=== PATIENT | female | born 1935 | race American Indian/Alaskan Native ===

== ENCOUNTER 2018-09-12 04:51 | Emergency (ER) | payer MEDICARE ==
--- NOTE | 2018-09-12 06:59 | Cat Scan Report ---
PROCEDURE: CT HEAD/BRAIN WO CON TECHNIQUE: Computerized tomography of the head was performed without contrast material. CT DOSE LENGTH PRODUCT: mGycm HISTORY: fall COMPARISONS: None . FINDINGS: Skull and scalp: There is mild right-sided supraorbital soft tissue swelling without fracture. . Paranasal sinuses: Normal . Ventricles and subarachnoid spaces: Normal . Cerebrum: No evidence of hemorrhage, acute infarction or mass . There is a remote infarct in the lef t parietal lobe. There is slightly diminished attenuation of the periventricular white matter compati ble with chronic ischemic white matter disease changes. Cerebellum and brainstem: No evidence of hemorrhage, acute infarction or mass . Vasculature: Normal . Other: None . ASPECTS: 10 IMPRESSION: Right-sided supraorbital scalp swelling without skull fracture. Age-related volume loss with chronic ischemic white matter disease changes. No acute stroke or hemorr rosa maria. 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 This document is electronically signed by Smooth Hurtado MD., Sep 12 2018 06:56:46 AM ET
[2018-09-12] MEDS ORDERED: NORCO 5/325 PO ONE (07:15)
--- NOTE | 2018-09-12 07:18 | Emergency Department Report ---
HPI - General Chief Complaint: Fall Time Seen by Provider: 09/12/18 07:06 - HPI HPI: Room 23 The patient is an 83-year-old female presented with a chief complaint of head pain after fall. The patient states she was asleep when she fell out of bed and awakening on the floor. She complains of a headache and pain in bilateral thumbs and neck. Location: [See above] Duration: Just prior to arrival Quality: Pain Severity: Moderate Modifying factors: [see above] Context: [see above] Mode of transportation: [not driving] ED Past Medical Hx - Past Medical History Previous Medical History?: Yes Hx Hypertension: Yes Hx Congestive Heart Failure: Yes Hx Diabetes: Yes Hx Renal Disease: Yes - Surgical History Past Surgical History?: Yes Hx Breast Surgery: Yes Additional Surgical History: Right breast surgery, Left arm port - Family History Family history: no significant - Social History Smoking Status: Never Smoker Substance Use Type: None - Medications Home Medications: Home Medications Medication Instructions Recorded Confirmed Last Taken Type Anastrozole (Nf) [Arimidex (Nf)] 1 mg PO DAILY 02/03/16 02/03/16 02/03/16 History Calcitriol [Rocaltrol] 1 mcg PO QDAY 02/03/16 02/03/16 02/03/16 History Carvedilol [Coreg] 25 mg PO BID 02/03/16 02/03/16 02/03/16 History Ergocalciferol(Vitamin D2)(Nf) 400 unit PO DAILY 02/03/16 02/03/16 02/03/16 History [Vitamin D (Nf)] Ferrous Sulfate [Feosol 325 MG tab] 325 mg PO BID 02/03/16 02/03/16 02/03/16 History Metoprolol Xl [Metoprolol 50 mg PO QDAY 02/03/16 02/03/16 02/03/16 History SUCCINATE ER TAB] Vit B Comp C/Folic Acid/Vit D3 1 each PO QDAY 02/03/16 02/03/16 02/03/16 History [Dialyvite 800 Plus D Wafer] amLODIPine [Norvasc] 5 mg PO DAILY 02/03/16 02/03/16 02/03/16 History glipiZIDE [glipiZIDE ER] 5 mg PO QAM 02/03/16 02/03/16 02/03/16 History hydrALAZINE [Apresoline TAB] 25 mg PO BID 02/03/16 02/03/16 02/03/16 History Colchicine [Colcrys] 0.6 mg PO QDAY #10 tablet 02/10/16 Unknown Rx Furosemide [Lasix TAB] 80 mg PO 4XW #20 tablet 02/10/16 Unknown Rx Insulin NPH/Regular [NovoLIN 70/30] 10 unit SUB-Q BIDDIAB units 02/10/16 Unknown Rx Aspirin [Aspirin BABY CHEW TAB] 81 mg PO QDAY 10/06/16 10/06/16 Unknown History Carvedilol [Coreg] 25 mg PO BID 10/06/16 10/06/16 Unknown History Furosemide [Lasix TAB] 80 mg PO 4XW 10/06/16 10/06/16 Unknown History Insulin Lispro Prot/Lispro 25 unit SQ BID 10/06/16 10/06/16 Unknown History [HumaLOG Mix 75/25 Vial] Losartan [Cozaar] 100 mg PO QDAY 10/06/16 10/06/16 Unknown History Mv,Calcium,Min/Iron/Folic/Vitk 1 each PO DAILY 10/06/16 10/06/16 Unknown History [Multi For Her Tablet] amLODIPine [Norvasc] 10 mg PO DAILY 10/06/16 10/06/16 Unknown History HYDROcodone/APAP 5-325 [Bethesda 1 - 2 each PO Q6HR PRN #10 tablet 09/12/18 Unknown Rx 5/325] Ibuprofen [Motrin 800 MG tab] 800 mg PO Q8HR PRN #20 tablet 09/12/18 Unknown Rx ED Review of Systems ROS: Stated complaint: HEAD LAC Other details as noted in HPI Constitutional: no symptoms reported Eyes: denies: eye pain ENT: denies: throat pain Respiratory: no symptoms reported Cardiovascular: denies: chest pain Endocrine: no symptoms reported Gastrointestinal: denies: abdominal pain Musculoskeletal: myalgia Neurological: headache Physical Exam - Physical Exam Vital Signs: Vital Signs 09/12/18 09/12/18 09/12/18 05:56 06:14 06:16 Temperature 98.0 F Pulse Rate 75 77 Respiratory 18 22 Rate O2 Sat by Pulse 98 99 Oximetry Physical Exam: GENERAL: The patient is well-developed well-nourished female lying on stretcher appearing to be in moderate discomfort. [] HEENT: Normocephalic. Atraumatic. Extraocular motions are intact. Patient has moist mucous membranes. NECK: Supple. No axial step offs but there is tenderness to palpation at C7 CHEST/LUNGS: Clear to auscultation. There is no respiratory distress noted. HEART/CARDIOVASCULAR: Regular. There is no tachycardia. There is no gallop rub or murmur. ABDOMEN: Abdomen is soft, nontender. Patient has normal bowel sounds. There is no abdominal distention. SKIN: There is an approximately 4 mm linear laceration just lateral to the right orbit hemostatic with scab formation. There is no diaphoresis. NEURO: The patient is awake, alert, and oriented. The patient is cooperative. The patient has no focal neurologic deficits. The patient has normal speech MUSCULOSKELETAL: There is no evidence of acute injury. ED Course Vital Signs 09/12/18 09/12/18 09/12/18 05:56 06:14 06:16 Temperature 98.0 F Pulse Rate 75 77 Respiratory 18 22 Rate O2 Sat by Pulse 98 99 Oximetry ED Medical Decision Making - Lab Data Result diagrams: 09/12/18 08:46 09/12/18 08:46 - Radiology Data Radiology results: report reviewed (CT head, CT facial bones, CT cervical spine, bilateral wrist x-ray), image reviewed (CT head, CT facial bones, bilateral wrist x-ray, cervical spine x-ray) interpreted by me: Bilateral wrist x-ray-no definite acute fracture Cervical spine x-ray-no definite acute fracture seen [facility] [address] [place] [address] Cat Scan Report Signed Patient: PONCHO ARIAS MR#: [id number] : 1935 Acct:[id number] Age/Sex: 83 / F ADM Date: 09/12/18 Loc: ED Attending Dr: Ordering Physician: IKE ESCOBAR MD Date of Service: 09/12/18 Procedure(s): CT facial bones wo con Accession Number(s): [id number] cc: IKE ESCOABR MD PROCEDURE: CT FACIAL BONES WO CON TECHNIQUE: CT of the face is obtained without contrast HISTORY: fall COMPARISONS: Head CT of the same date FINDINGS: Right periorbital soft tissue swelling. No facial fractures. The bony orbits, nasal bones, pterygoid plates,mandible and maxilla are intact. Normal spherical shape of the globes. Mucosal thickening/retention cyst within the left maxillary sinus. No significant abnormality within the remaining paranasal sinuses or mastoid air cells. Hyperostosis frontalis. IMPRESSION: Right frontal/periorbital soft tissue swelling without fracture. Left maxillary sinus mucus retention cyst/mucosal thickening without fluid level. No other significant abnormality in the paranasal sinuses or mastoid air cells. This document is electronically signed by Gareth Riddle MD., Sep 12 2018 07:30:10 AM ET Transcribed By: JOEL Dictated By: GARETH RIDDLE MD Electronically Authenticated By: GARETH RIDDLE MD Signed Date/Time: 09/12/18731 DD/ 6 TD/TT: 09/12/18706 [facility] [address] [id number] Cat Scan Report Signed Patient: PONCHO ARIAS MR#: [id number] : 1935 Acct:[id number] Age/Sex: 83 / F ADM Date: 09/12/18 Loc: ED Attending Dr: Ordering Physician: SHIREEN PENALOZA MD Date of Service: 09/12/18 Procedure(s): CT head/brain wo con Accession Number(s): [id number] cc: SHIREEN PENALOZA MD PROCEDURE: CT HEAD/BRAIN WO CON TECHNIQUE: Computerized tomography of the head was performed without contrast material. CT DOSE LENGTH PRODUCT: mGycm HISTORY: fall COMPARISONS: None . FINDINGS: Skull and scalp: There is mild right-sided supraorbital soft tissue swelling without fracture. . Paranasal sinuses: Normal . Ventricles and subarachnoid spaces: Normal . Cerebrum: No evidence of hemorrhage, acute infarction or mass . There is a remote infarct in the left parietal lobe. There is slightly diminished attenuation of the periventricular white matter compatible with chronic ischemic white matter disease changes. Cerebellum and brainstem: No evidence of hemorrhage, acute infarction or mass . Vasculature: Normal . Other: None . ASPECTS: 10 IMPRESSION: Right-sided supraorbital scalp swelling without skull fracture. Age-related volume loss with chronic ischemic white matter disease changes. No acute stroke or hemorrhage. 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 This document is electronically signed by Nhung Hurtado MD., Sep 12 2018 06:56:46 AM ET Transcribed By: RB Dictated By: NHUNG HURTADO MD Electronically Authenticated By: NHUNG HURTADO MD Signed Date/Time: 09/12/18 0659 DD/ TD/TT: 09/12/[address] [address] XRay Report Signed Patient: PONCHO ARIAS MR#: [id number] : 1935 Acct:[id number] Age/Sex: 83 / F ADM Date: 09/12/18 Loc: ED Attending Dr: Ordering Physician: IKE ESCOBAR MD Date of Service: 09/12/18 Procedure(s): XR spine cervical 2-3V Accession Number(s): [id number] cc: IKE ESCOBAR MD Fluoro Time In Minutes: PROCEDURE: XR SPINE CERVICAL 2-3V TECHNIQUE: Cervical spine radiograph, 2 views. HISTORY: Pain after fall. COMPARISONS: None currently available. FINDINGS: Diffuse osteopenia. Lordotic alignment. Severe degenerative discs at C5-C7. Mild to moderate disc space narrowing at C3-C5 and C7-T1. Intact disc space at C2-C3. No subluxation. Vertebral body heights are uniform. No fracture. Posterior facet arthropathy at C4-C7. Prevertebral soft tissues are unremarkable. Mild levocurvature or scoliosis of the cervicothoracic spine. No suspicious osseous lesions. No vertebral anomalies. IMPRESSION: * No fracture. * Osteopenia. * Degenerative discs. This document is electronically signed by Kevin Burnett MD., Sep 12 2018 10:05:46 AM ET Transcribed By: TYM Dictated By: KEVIN BURNETT MD Electronically Authenticated By: KEVIN BURNETT MD Signed Date/Time: 09/12/18 1007 DD/ TD/TT: 09/12/[address] [address] XRay Report Signed Patient: PONCHO ARIAS MR#: [id number] : 1935 Acct:[id number] Age/Sex: 83 / F ADM Date: 09/12/18 Loc: ED Attending Dr: Ordering Physician: IKE ESCOBAR MD Date of Service: 09/12/18 Procedure(s): XR wrist BILAT 2V Accession Number(s): [id number] cc: IKE ESCOBAR MD Fluoro Time In Minutes: PROCEDURE: XR WRIST BILAT 2V TECHNIQUE: Bilateral wrist radiographs, 2 views each. HISTORY: post fall bilateral wrist pain COMPARISONS: None currently available. FINDINGS: RIGHT: Diffuse osteopenia. Moderate narrowing at the proximal and distal carpal rows. Mild subchondral sclerosis. No significant marginal osteophytes. Mild to moderate arthritic changes in the fingers. There is no acute dislocation. There is no acute fracture. There is no evidence for healing fracture. There is no cortical destruction to suggest osteomyelitis. There are no suspicious osseous lesions. There are no radiopaque foreign objects. Vascular calcifications. LEFT: Diffuse osteopenia. Severe narrowing of the proximal and distal carpal rows. [id number] articulation identified. Subchondral sclerosis and remodeling noted. Mild to moderate arthritic changes in the fingers. There is no acute dislocation. There is no acute fracture. There is no evidence for healing fracture. There is no cortical destruction to suggest osteomyelitis. There are no suspicious osseous lesions. There are no radiopaque foreign objects. Vascular calcifications. IMPRESSION: * Diffuse osteopenia limits evaluation. Occult fractures may not be visualized on the initial x- rays and only become apparent after sclerotic healing occurs. 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 * Otherwise, no acute osseous findings. * Vascular calcifications. This document is electronically signed by Kevin Burnett MD., Sep 12 2018 10:10:15 AM ET Transcribed By: TYM Dictated By: KEVIN BURNETT MD Electronically Authenticated By: KEVIN BURNETT MD Signed Date/Time: 09/12/18 1012 DD/ 1 TD/TT: 09/12/18911 - Differential Diagnosis closed head injury, cervical strain, ICH Critical care attestation.: If time is entered above; I have spent that time in minutes in the direct care of this critically ill patient, excluding procedure time. ED Disposition Clinical Impression: Closed head injury, Facial laceration, Cervical strain, acute Disposition: DC-01 TO HOME OR SELFCARE Is pt being admited?: No Does the pt Need Aspirin: No Condition: Stable Instructions: Muscle Strain (ED) Additional Instructions: Return to the emergency department immediately should you develop worsening symptoms, fever, inability to tolerate food or liquid or any other concerns. Prescriptions: Ibuprofen [Motrin 800 MG tab] 800 mg PO Q8HR PRN #20 tablet PRN Reason: Pain, Moderate (4-6) HYDROcodone/APAP 5-325 [Bethesda 5/325] 1 - 2 each PO Q6HR PRN #10 tablet PRN Reason: Pain Referrals: DARLEEN DIAZ [Other] - 3-5 Days Time of Disposition: 10:20
--- NOTE | 2018-09-12 07:32 | Cat Scan Report ---
PROCEDURE: CT FACIAL BONES WO CON TECHNIQUE: CT of the face is obtained without contrast HISTORY: fall COMPARISONS: Head CT of the same date FINDINGS: Right periorbital soft tissue swelling. No facial fractures. The bony orbits, nasal bones, pterygoid plates,mandible and maxilla are intact. Normal spherical shape of the globes. Mucosal thickening/retention cyst within the left maxillary sin us. No significant abnormality within the remaining paranasal sinuses or mastoid air cells. Hyperosto sis frontalis. IMPRESSION: Right frontal/periorbital soft tissue swelling without fracture. Left maxillary sinus mucus retention cyst/mucosal thickening without fluid level. No other significan t abnormality in the paranasal sinuses or mastoid air cells. This document is electronically signed by Gareth Garcias MD., Sep 12 2018 07:30:10 AM ET
[2018-09-12 08:57] LABS: Basophils % (Auto) 0.3 % (0.0-1.8); Eosinophils % (Auto) 0.3 % (0.0-4.3); Lymphocytes # (Auto) 0.7 K/mm3 (1.2-5.4); Lymphocytes % (Auto) 9.8 % (13.4-35.0); Mean Corpuscular HGB Conc 33 % (30-34); Mean Corpuscular Volume 97 fl (79-97); Monocytes # (Auto) 0.8 K/mm3 (0.0-0.8); Platelet Count 128 K/mm3 (140-440); Red Blood Count 3.72 M/mm3 (3.65-5.03); Red Cell Distribution Width 17.2 % (13.2-15.2)
[2018-09-12 09:16] LABS: Calcium 8.2 mg/dL (8.4-10.2)
[2018-09-12] MEDS ORDERED: HYDROGEN PEROXIDE ONE (09:20)
[2018-09-12 09:23] LABS: INR 0.96 (0.87-1.13)
[2018-09-12] MEDS ORDERED: NACL 0.9% 500 ML IR ONE (09:23)
[2018-09-12 09:24] LABS: Partial Thromboplastin Time 26.7 Sec. (24.2-36.6)
--- NOTE | 2018-09-12 10:07 | XRay Report ---
PROCEDURE: XR SPINE CERVICAL 2-3V TECHNIQUE: Cervical spine radiograph, 2 views. HISTORY: Pain after fall. COMPARISONS: None currently available. FINDINGS: Diffuse osteopenia. Lordotic alignment. Severe degenerative discs at C5-C7. Mild to moderate disc space narrowing at C3-C 5 and C7-T1. Intact disc space at C2-C3. No subluxation. Vertebral body heights are uniform. No fract ure. Posterior facet arthropathy at C4-C7. Prevertebral soft tissues are unremarkable. Mild levocurvature or scoliosis of the cervicothoracic spine. No suspicious osseous lesions. No verte bral anomalies. IMPRESSION: * No fracture. * Osteopenia. * Degenerative discs. This document is electronically signed by Kevin Quezada MD., Sep 12 2018 10:05:46 AM ET
--- NOTE | 2018-09-12 10:12 | XRay Report ---
PROCEDURE: XR WRIST BILAT 2V TECHNIQUE: Bilateral wrist radiographs, 2 views each. HISTORY: post fall bilateral wrist pain COMPARISONS: None currently available. FINDINGS: RIGHT: Diffuse osteopenia. Moderate narrowing at the proximal and distal carpal rows. Mild subchondral sclerosis. No significant marginal osteophytes. Mild to moderate arthritic changes in the fingers. There is no acute dislocation. There is no acute fracture. There is no evidence for healing fracture. There is no cortical destruction to suggest osteomyelitis. There are no suspicious osseous lesions. There are no radiopaque foreign objects. Vascular calcifications. LEFT: Diffuse osteopenia. Severe narrowing of the proximal and distal carpal rows. [id number] articulation identified. Subcho ndral sclerosis and remodeling noted. Mild to moderate arthritic changes in the fingers. There is no acute dislocation. There is no acute fracture. There is no evidence for healing fracture. There is no cortical destruction to suggest osteomyelitis. There are no suspicious osseous lesions. There are no radiopaque foreign objects. Vascular calcifications. IMPRESSION: * Diffuse osteopenia limits evaluation. Occult fractures may not be visualized on the initial x-rays and only become apparent after sclerotic healing occurs. 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 * Otherwise, no acute osseous findings. * Vascular calcifications. This document is electronically signed by Kevin Quezada MD., Sep 12 2018 10:10:15 AM ET
[2018-09-12 13:34] VITALS: BP 189/57
== END 2018-09-12 12:15 | disposition home or self-care (01) ==
LOC: ED 04:51
DX: S16.1XXA Strain of muscle, fascia and tendon at neck level, initial encounter (principal); S01.81XA Laceration without foreign body of other part of head, initial encounter; S09.90XA Unspecified injury of head, initial encounter; I11.0 Hypertensive heart disease with heart failure; I50.9 Heart failure, unspecified; E11.9 Type 2 diabetes mellitus without complications; Z88.0 Allergy status to penicillin; W06.XXXA Fall from bed, initial encounter; Y93.89 Activity, other specified; Y92.89 Other specified places as the place of occurrence of the external cause; Y99.8 Other external cause status
CPT/HCPCS: 36415; 70450; 70486; 72040; 80048; 82962; 85025; 85610; 85730; 99285

== ENCOUNTER 2018-11-03 07:06 | Emergency (ER) | payer MEDICARE ==
--- NOTE | 2018-11-03 07:32 | Emergency Department Report ---
ED General Adult HPI - General Chief complaint: Altered Mental Status Stated complaint: GENERAL WEAKNESS Time Seen by Provider: 11/03/18 07:18 Source: patient, EMS Mode of arrival: Stretcher Limitations: No Limitations - History of Present Illness Initial comments: 83-year-old female went for routine dialysis today. She complained of weakness. She tells me that she has been weak for months. Her dialysis clinic elected to send her to the hospital for evaluation. The patient herself doesn't think her weakness is secondary to chronic kidney disease. However she does admit she's felt this way for quite some time at least a few months. She states that she has not had a transfusion over the interim. She denies fever or chills. She denies specific pain. She denies any respiratory symptoms. She is otherwise asymptomatic. -: month(s) Consistency: constant Improves with: none Associated Symptoms: denies other symptoms, weakness - Related Data Home Medications Medication Instructions Recorded Confirmed Last Taken Anastrozole (Nf) [Arimidex (Nf)] 1 mg PO DAILY 02/03/16 11/03/18 02/03/16 Calcitriol [Rocaltrol] 1 mcg PO QDAY 02/03/16 11/03/18 02/03/16 Carvedilol [Coreg] 25 mg PO BID 02/03/16 11/03/18 02/03/16 Ergocalciferol(Vitamin D2)(Nf) 400 unit PO DAILY 02/03/16 11/03/18 02/03/16 [Vitamin D (Nf)] Ferrous Sulfate [Feosol 325 MG tab] 325 mg PO BID 02/03/16 11/03/18 02/03/16 Metoprolol Xl [Metoprolol 50 mg PO QDAY 02/03/16 11/03/18 02/03/16 SUCCINATE ER TAB] Vit B Comp C/Folic Acid/Vit D3 1 each PO QDAY 02/03/16 11/03/18 02/03/16 [Dialyvite 800 Plus D Wafer] amLODIPine [Norvasc] 5 mg PO DAILY 02/03/16 11/03/18 02/03/16 glipiZIDE [glipiZIDE ER] 5 mg PO QAM 02/03/16 11/03/18 02/03/16 hydrALAZINE [Apresoline TAB] 25 mg PO BID 02/03/16 11/03/18 02/03/16 Aspirin [Aspirin BABY CHEW TAB] 81 mg PO QDAY 10/06/16 11/03/18 Unknown Carvedilol [Coreg] 25 mg PO BID 10/06/16 11/03/18 Unknown Furosemide [Lasix TAB] 80 mg PO 4XW 10/06/16 11/03/18 Unknown Insulin Lispro Prot/Lispro 25 unit SQ BID 10/06/16 11/03/18 Unknown [HumaLOG Mix 75/25 Vial] Losartan [Cozaar] 100 mg PO QDAY 10/06/16 11/03/18 Unknown Mv,Calcium,Min/Iron/Folic/Vitk 1 each PO DAILY 10/06/16 11/03/18 Unknown [Multi For Her Tablet] amLODIPine [Norvasc] 10 mg PO DAILY 10/06/16 11/03/18 Unknown Previous Rx's Medication Instructions Recorded Last Taken Type Colchicine [Colcrys] 0.6 mg PO QDAY #10 tablet 02/10/16 Unknown Rx Furosemide [Lasix TAB] 80 mg PO 4XW #20 tablet 02/10/16 Unknown Rx Insulin NPH/Regular [NovoLIN 70/30] 10 unit SUB-Q BIDDIAB units 02/10/16 Unknown Rx HYDROcodone/APAP 5-325 [Allison 1 - 2 each PO Q6HR PRN #10 tablet 09/12/18 Unknown Rx 5/325] Ibuprofen [Motrin 800 MG tab] 800 mg PO Q8HR PRN #20 tablet 09/12/18 Unknown Rx Allergies Allergy/AdvReac Type Severity Reaction Status Date / Time Penicillins Allergy Swelling Verified 10/06/16 06:14 ED Review of Systems ROS: Stated complaint: GENERAL WEAKNESS Other details as noted in HPI Constitutional: weakness. denies: chills, fever Eyes: denies: eye pain, eye discharge, vision change ENT: denies: ear pain, throat pain Respiratory: denies: cough, shortness of breath, wheezing Cardiovascular: denies: chest pain, palpitations Endocrine: no symptoms reported Gastrointestinal: denies: abdominal pain, nausea, diarrhea Genitourinary: as per HPI Musculoskeletal: denies: back pain, joint swelling, arthralgia Skin: denies: rash, lesions Neurological: denies: headache, weakness, paresthesias Psychiatric: denies: anxiety, depression Hematological/Lymphatic: denies: easy bleeding, easy bruising ED Past Medical Hx - Past Medical History Hx Hypertension: Yes Hx Congestive Heart Failure: Yes Hx Diabetes: Yes Hx Renal Disease: Yes - Surgical History Hx Breast Surgery: Yes Additional Surgical History: Right breast surgery, Left arm port - Social History Smoking Status: Never Smoker Substance Use Type: None Other Social History: Lives at home with son - Medications Home Medications: Home Medications Medication Instructions Recorded Confirmed Last Taken Type Anastrozole (Nf) [Arimidex (Nf)] 1 mg PO DAILY 02/03/16 11/03/18 02/03/16 History Calcitriol [Rocaltrol] 1 mcg PO QDAY 02/03/16 11/03/18 02/03/16 History Carvedilol [Coreg] 25 mg PO BID 02/03/16 11/03/18 02/03/16 History Ergocalciferol(Vitamin D2)(Nf) 400 unit PO DAILY 02/03/16 11/03/18 02/03/16 History [Vitamin D (Nf)] Ferrous Sulfate [Feosol 325 MG tab] 325 mg PO BID 02/03/16 11/03/18 02/03/16 History Metoprolol Xl [Metoprolol 50 mg PO QDAY 02/03/16 11/03/18 02/03/16 History SUCCINATE ER TAB] Vit B Comp C/Folic Acid/Vit D3 1 each PO QDAY 02/03/16 11/03/18 02/03/16 History [Dialyvite 800 Plus D Wafer] amLODIPine [Norvasc] 5 mg PO DAILY 02/03/16 11/03/18 02/03/16 History glipiZIDE [glipiZIDE ER] 5 mg PO QAM 02/03/16 11/03/18 02/03/16 History hydrALAZINE [Apresoline TAB] 25 mg PO BID 02/03/16 11/03/18 02/03/16 History Colchicine [Colcrys] 0.6 mg PO QDAY #10 tablet 02/10/16 11/03/18 Unknown Rx Furosemide [Lasix TAB] 80 mg PO 4XW #20 tablet 02/10/16 11/03/18 Unknown Rx Insulin NPH/Regular [NovoLIN 70/30] 10 unit SUB-Q BIDDIAB units 02/10/16 11/03/18 Unknown Rx Aspirin [Aspirin BABY CHEW TAB] 81 mg PO QDAY 10/06/16 11/03/18 Unknown History Carvedilol [Coreg] 25 mg PO BID 10/06/16 11/03/18 Unknown History Furosemide [Lasix TAB] 80 mg PO 4XW 10/06/16 11/03/18 Unknown History Insulin Lispro Prot/Lispro 25 unit SQ BID 10/06/16 11/03/18 Unknown History [HumaLOG Mix 75/25 Vial] Losartan [Cozaar] 100 mg PO QDAY 10/06/16 11/03/18 Unknown History Mv,Calcium,Min/Iron/Folic/Vitk 1 each PO DAILY 10/06/16 11/03/18 Unknown History [Multi For Her Tablet] amLODIPine [Norvasc] 10 mg PO DAILY 10/06/16 11/03/18 Unknown History HYDROcodone/APAP 5-325 [Allison 1 - 2 each PO Q6HR PRN #10 tablet 09/12/18 11/03/18 Unknown Rx 5/325] Ibuprofen [Motrin 800 MG tab] 800 mg PO Q8HR PRN #20 tablet 09/12/18 11/03/18 Unknown Rx ED Physical Exam - General Limitations: No Limitations General appearance: alert, in no apparent distress - Head Head exam: Present: atraumatic, normocephalic - Eye Eye exam: Present: normal appearance. Absent: scleral icterus - ENT ENT exam: Present: mucous membranes moist - Neck Neck exam: Present: normal inspection - Respiratory Respiratory exam: Present: normal lung sounds bilaterally. Absent: respiratory distress - Cardiovascular Cardiovascular Exam: Present: regular rate, normal rhythm. Absent: systolic murmur, diastolic murmur, rubs, gallop - GI/Abdominal GI/Abdominal exam: Present: soft, normal bowel sounds. Absent: distended, tenderness, guarding, rebound - Extremities Exam Extremities exam: Present: normal inspection. Absent: pedal edema - Back Exam Back exam: Present: normal inspection - Neurological Exam Neurological exam: Present: alert, oriented X3, CN II-XII intact. Absent: motor sensory deficit - Psychiatric Psychiatric exam: Present: normal mood, flat affect - Skin Skin exam: Present: warm, dry, intact, normal color. Absent: rash ED Course Vital Signs 11/03/18 11/03/18 11/03/18 07:12 08:02 08:07 Temperature 96.7 F L Pulse Rate 67 61 Respiratory 18 18 Rate Blood Pressure 167/73 Blood Pressure [Left] O2 Sat by Pulse 98 Oximetry 11/03/18 10:09 Temperature Pulse Rate 76 Respiratory 16 Rate Blood Pressure Blood Pressure 171/80 [Left] O2 Sat by Pulse 96 Oximetry - Reevaluation(s) Reevaluation #1: On reexamination the patient is asymptomatic. Discussed with family. I do not identify any cold hospitalization at this point. Patient does have physical therapy at home which could be helpful. Follow up with primary care physician. Family understands and is in agreement. 11/03/18 11:37 ED Medical Decision Making - Lab Data Result diagrams: 11/03/18 09:05 11/03/18 09:05 Laboratory Results - last 24 hr 11/03/18 11/03/18 11/03/18 09:05 09:05 09:05 WBC 4.8 RBC 3.52 L Hgb 11.5 Hct 34.8 MCV 99 H MCH 33 H MCHC 33 RDW 15.8 H Plt Count 146 Lymph % (Auto) 18.9 Stevens % (Auto) 8.7 H Eos % (Auto) 6.6 H Baso % (Auto) 0.6 Lymph # 0.9 L Stevens # 0.4 Eos # 0.3 Baso # 0.0 Seg Neutrophils % 65.2 Seg Neutrophils # 3.1 PT 14.2 INR 1.13 APTT 28.9 Sodium 133 L Potassium 4.6 Chloride 92.6 L Carbon Dioxide 25 Anion Gap 20 BUN 33 H Creatinine 4.8 H Estimated GFR 10 BUN/Creatinine Ratio 7 Glucose 279 H Lactic Acid Calcium 9.0 Phosphorus 4.60 H Total Bilirubin 0.40 Direct Bilirubin < 0.2 AST 16 ALT 30 Alkaline Phosphatase 112 Ammonia NT-Pro-B Natriuret Pep 12999 H Total Protein 5.9 L Albumin 3.4 L Albumin/Globulin Ratio 1.4 TSH Free T4 Blood Type Antibody Screen 11/03/18 11/03/18 11/03/18 09:05 09:05 09:05 WBC RBC Hgb Hct MCV MCH MCHC RDW Plt Count Lymph % (Auto) Stevens % (Auto) Eos % (Auto) Baso % (Auto) Lymph # Stevens # Eos # Baso # Seg Neutrophils % Seg Neutrophils # PT INR APTT Sodium Potassium Chloride Carbon Dioxide Anion Gap BUN Creatinine Estimated GFR BUN/Creatinine Ratio Glucose Lactic Acid 1.30 Calcium Phosphorus Total Bilirubin Direct Bilirubin AST ALT Alkaline Phosphatase Ammonia 30.0 NT-Pro-B Natriuret Pep Total Protein Albumin Albumin/Globulin Ratio TSH Free T4 Blood Type O POSITIVE Antibody Screen Negative 11/03/18 09:05 WBC RBC Hgb Hct MCV MCH MCHC RDW Plt Count Lymph % (Auto) Stevens % (Auto) Eos % (Auto) Baso % (Auto) Lymph # Stevens # Eos # Baso # Seg Neutrophils % Seg Neutrophils # PT INR APTT Sodium Potassium Chloride Carbon Dioxide Anion Gap BUN Creatinine Estimated GFR BUN/Creatinine Ratio Glucose Lactic Acid Calcium Phosphorus Total Bilirubin Direct Bilirubin AST ALT Alkaline Phosphatase Ammonia NT-Pro-B Natriuret Pep Total Protein Albumin Albumin/Globulin Ratio TSH 3.150 Free T4 1.42 Blood Type Antibody Screen - EKG Data -: EKG Interpreted by Me EKG shows normal: sinus rhythm, axis, intervals, ST-T waves Rate: normal - EKG Data Interpretation: LVH (repolarization abnormalities are consistent with secondary changes due to LVH) - Radiology Data Radiology results: report reviewed (chest x-ray no acute process) Critical care attestation.: If time is entered above; I have spent that time in minutes in the direct care of this critically ill patient, excluding procedure time. ED Disposition Clinical Impression: Generalized weakness, End stage renal disease on dialysis, Essential hypertension Disposition: TO HOME OR SELFCARE Is pt being admited?: No Does the pt Need Aspirin: No Condition: Stable Instructions: Hypertension (ED), Chronic Kidney Disease (ED), Chronic Hypertension (ED), Weakness (ED) Additional Instructions: Fluid is restriction until Monday. Try to arrange dialysis on Monday with your telephone triage nurse. Follow up with primary care. Return any acute change or problems. Continue current medications. Referrals: DARLEEN DIAZ [Other] - 2-3 Days usual, telephone triage nurse [Other] - [facility] Time of Disposition: 11:39
--- NOTE | 2018-11-03 07:50 | XRay Report ---
CHEST 1 VIEW INDICATION / CLINICAL INFORMATION: hypertension. COMPARISON: None available. FINDINGS: SUPPORT DEVICES: None. HEART / MEDIASTINUM: Mild cardiomegaly and atherosclerotic changes of the thoracic aorta LUNGS / PLEURA: No significant pulmonary or pleural abnormality. No pneumothorax. ADDITIONAL FINDINGS: No significant additional findings. IMPRESSION: 1. No acute findings. Signer Name: Micheal Herrera MD Signed: 11/03/2018 7:45 AM Workstation Name: [id number]
[2018-11-03 09:48] LABS: Basophils % (Auto) 0.6 % (0.0-1.8); Eosinophils # (Auto) 0.3 K/mm3 (0.0-0.4); Eosinophils % (Auto) 6.6 % (0.0-4.3); Hematocrit 34.8 % (30.3-42.9); Hemoglobin 11.5 gm/dl (10.1-14.3); Lymphocytes # (Auto) 0.9 K/mm3 (1.2-5.4); Lymphocytes % (Auto) 18.9 % (13.4-35.0); Mean Corpuscular HGB Conc 33 % (30-34); Mean Corpuscular Volume 99 fl (79-97); Monocytes # (Auto) 0.4 K/mm3 (0.0-0.8); Monocytes % (Auto) 8.7 % (0.0-7.3); Platelet Count 146 K/mm3 (140-440); Red Blood Count 3.52 M/mm3 (3.65-5.03); Red Cell Distribution Width 15.8 % (13.2-15.2)
[2018-11-03 09:58] LABS: INR 1.13 (0.87-1.13); Partial Thromboplastin Time 28.9 Sec. (24.2-36.6)
[2018-11-03 10:14] LABS: Alanine Aminotransferase 30 units/L (7-56); Albumin 3.4 g/dL (3.9-5); BUN/Creatinine Ratio 7; Bilirubin,Direct < 0.2 mg/dL (0-0.2); Blood Urea Nitrogen 33 mg/dL (7-17); Hemolysis Index 17
[2018-11-03 10:22] LABS: Free T4 (Free Thyroxine) 1.42 ng/dL (0.76-1.46)
[2018-11-03 12:19] VITALS: BP 190/85
== END 2018-11-03 12:19 | disposition home or self-care (01) ==
LOC: ED 07:06
DX: I13.2 Hypertensive heart and chronic kidney disease with heart failure and with stage 5 chronic kidney disease, or end stage renal disease (principal); E11.22 Type 2 diabetes mellitus with diabetic chronic kidney disease; N18.6 End stage renal disease; I50.9 Heart failure, unspecified; Z99.2 Dependence on renal dialysis; Z79.4 Long term (current) use of insulin; Z98.890 Other specified postprocedural states; Z79.899 Other long term (current) drug therapy; Z79.82 Long term (current) use of aspirin; Z88.0 Allergy status to penicillin
CPT/HCPCS: 36415; 71045; 80048; 80076; 82140; 83880; 84100; 84439; 84443; 85025; 85610; 85730; 86850; 86900; 86901; 87040; 99284

== ENCOUNTER 2018-11-09 19:13 | Emergency (ER) | payer MEDICARE ==
--- NOTE | 2018-11-09 20:07 | Emergency Department Report ---
ED General Adult HPI - General Chief complaint: Extremity Injury, Lower Stated complaint: LT LEG PAIN Time Seen by Provider: 11/09/18 20:01 Source: patient, EMS Mode of arrival: Stretcher Limitations: Physical Limitation - History of Present Illness Initial comments: 83 y.o. female with a history of ESRD, DM, and HTN presents with a complaint of left lower extremity pain. Family states that patient is wheelchair bound at baseline and has a history of a hip replacement on right hip. Patient was being transitioned from the bed and in easing her to the floor patient complained of left lower extremity pain. patient has had no pain prior to this transitioning of the patient. Patient states that pain is a 10/10. patient received Fentanyl 50 mcg spray from EMS and Zofran as well. Severity scale (0 -10): 9 - Related Data Home Medications Medication Instructions Recorded Confirmed Last Taken Anastrozole (Nf) [Arimidex (Nf)] 1 mg PO DAILY 02/03/16 11/03/18 02/03/16 Calcitriol [Rocaltrol] 1 mcg PO QDAY 02/03/16 11/03/18 02/03/16 Carvedilol [Coreg] 25 mg PO BID 02/03/16 11/03/18 02/03/16 Ergocalciferol(Vitamin D2)(Nf) 400 unit PO DAILY 02/03/16 11/03/18 02/03/16 [Vitamin D (Nf)] Ferrous Sulfate [Feosol 325 MG tab] 325 mg PO BID 02/03/16 11/03/18 02/03/16 Metoprolol Xl [Metoprolol 50 mg PO QDAY 02/03/16 11/03/18 02/03/16 SUCCINATE ER TAB] Vit B Comp C/Folic Acid/Vit D3 1 each PO QDAY 02/03/16 11/03/18 02/03/16 [Dialyvite 800 Plus D Wafer] amLODIPine [Norvasc] 5 mg PO DAILY 02/03/16 11/03/18 02/03/16 glipiZIDE [glipiZIDE ER] 5 mg PO QAM 02/03/16 11/03/18 02/03/16 hydrALAZINE [Apresoline TAB] 25 mg PO BID 02/03/16 11/03/18 02/03/16 Aspirin [Aspirin BABY CHEW TAB] 81 mg PO QDAY 10/06/16 11/03/18 Unknown Carvedilol [Coreg] 25 mg PO BID 10/06/16 11/03/18 Unknown Furosemide [Lasix TAB] 80 mg PO 4XW 10/06/16 11/03/18 Unknown Insulin Lispro Prot/Lispro 25 unit SQ BID 10/06/16 11/03/18 Unknown [HumaLOG Mix 75/25 Vial] Losartan [Cozaar] 100 mg PO QDAY 10/06/16 11/03/18 Unknown Mv,Calcium,Min/Iron/Folic/Vitk 1 each PO DAILY 10/06/16 11/03/18 Unknown [Multi For Her Tablet] amLODIPine [Norvasc] 10 mg PO DAILY 10/06/16 11/03/18 Unknown Previous Rx's Medication Instructions Recorded Last Taken Type Colchicine [Colcrys] 0.6 mg PO QDAY #10 tablet 02/10/16 Unknown Rx Furosemide [Lasix TAB] 80 mg PO 4XW #20 tablet 02/10/16 Unknown Rx Insulin NPH/Regular [NovoLIN 70/30] 10 unit SUB-Q BIDDIAB units 02/10/16 Unknown Rx HYDROcodone/APAP 5-325 [Allen 1 - 2 each PO Q6HR PRN #10 tablet 09/12/18 Unknown Rx 5/325] Ibuprofen [Motrin 800 MG tab] 800 mg PO Q8HR PRN #20 tablet 09/12/18 Unknown Rx Allergies Allergy/AdvReac Type Severity Reaction Status Date / Time Penicillins Allergy Swelling Verified 10/06/16 06:14 ED Review of Systems ROS: Stated complaint: LT LEG PAIN Other details as noted in HPI Constitutional: denies: chills, fever Eyes: denies: eye pain, eye discharge, vision change ENT: denies: ear pain, throat pain Respiratory: denies: cough, shortness of breath, wheezing Cardiovascular: denies: chest pain, palpitations Endocrine: no symptoms reported Gastrointestinal: denies: abdominal pain, nausea, diarrhea Genitourinary: denies: urgency, dysuria, discharge Musculoskeletal: arthralgia Skin: denies: rash, lesions Neurological: denies: headache, weakness, paresthesias Psychiatric: denies: anxiety, depression Hematological/Lymphatic: denies: easy bleeding, easy bruising ED Past Medical Hx - Past Medical History Previous Medical History?: Yes Hx Hypertension: Yes Hx Congestive Heart Failure: Yes Hx Diabetes: Yes Hx Renal Disease: Yes - Surgical History Past Surgical History?: Yes Hx Breast Surgery: Yes Additional Surgical History: Right breast surgery, Left arm port, hysterectomy - Social History Smoking Status: Never Smoker Substance Use Type: None - Medications Home Medications: Home Medications Medication Instructions Recorded Confirmed Last Taken Type Anastrozole (Nf) [Arimidex (Nf)] 1 mg PO DAILY 02/03/16 11/03/18 02/03/16 History Calcitriol [Rocaltrol] 1 mcg PO QDAY 02/03/16 11/03/18 02/03/16 History Carvedilol [Coreg] 25 mg PO BID 02/03/16 11/03/18 02/03/16 History Ergocalciferol(Vitamin D2)(Nf) 400 unit PO DAILY 02/03/16 11/03/18 02/03/16 History [Vitamin D (Nf)] Ferrous Sulfate [Feosol 325 MG tab] 325 mg PO BID 02/03/16 11/03/18 02/03/16 History Metoprolol Xl [Metoprolol 50 mg PO QDAY 02/03/16 11/03/18 02/03/16 History SUCCINATE ER TAB] Vit B Comp C/Folic Acid/Vit D3 1 each PO QDAY 02/03/16 11/03/18 02/03/16 History [Dialyvite 800 Plus D Wafer] amLODIPine [Norvasc] 5 mg PO DAILY 02/03/16 11/03/18 02/03/16 History glipiZIDE [glipiZIDE ER] 5 mg PO QAM 02/03/16 11/03/18 02/03/16 History hydrALAZINE [Apresoline TAB] 25 mg PO BID 02/03/16 11/03/18 02/03/16 History Colchicine [Colcrys] 0.6 mg PO QDAY #10 tablet 02/10/16 11/03/18 Unknown Rx Furosemide [Lasix TAB] 80 mg PO 4XW #20 tablet 02/10/16 11/03/18 Unknown Rx Insulin NPH/Regular [NovoLIN 70/30] 10 unit SUB-Q BIDDIAB units 02/10/16 11/03/18 Unknown Rx Aspirin [Aspirin BABY CHEW TAB] 81 mg PO QDAY 10/06/16 11/03/18 Unknown History Carvedilol [Coreg] 25 mg PO BID 10/06/16 11/03/18 Unknown History Furosemide [Lasix TAB] 80 mg PO 4XW 10/06/16 11/03/18 Unknown History Insulin Lispro Prot/Lispro 25 unit SQ BID 10/06/16 11/03/18 Unknown History [HumaLOG Mix 75/25 Vial] Losartan [Cozaar] 100 mg PO QDAY 10/06/16 11/03/18 Unknown History Mv,Calcium,Min/Iron/Folic/Vitk 1 each PO DAILY 10/06/16 11/03/18 Unknown History [Multi For Her Tablet] amLODIPine [Norvasc] 10 mg PO DAILY 10/06/16 11/03/18 Unknown History HYDROcodone/APAP 5-325 [Allen 1 - 2 each PO Q6HR PRN #10 tablet 09/12/18 11/03/18 Unknown Rx 5/325] Ibuprofen [Motrin 800 MG tab] 800 mg PO Q8HR PRN #20 tablet 09/12/18 11/03/18 Unknown Rx ED Physical Exam - General Limitations: Physical Limitation General appearance: alert, other (uncomfortable; obvious distress) - Head Head exam: Present: atraumatic, normocephalic - Eye Eye exam: Present: normal appearance - ENT ENT exam: Present: mucous membranes moist - Neck Neck exam: Present: normal inspection - Respiratory Respiratory exam: Present: normal lung sounds bilaterally. Absent: respiratory distress - Cardiovascular Cardiovascular Exam: Present: regular rate, normal rhythm, other (ascultated thrill present in left upper extremity; 2+ dorsalis pedis pulses presnt). Absen t: systolic murmur, diastolic murmur, rubs, gallop - GI/Abdominal GI/Abdominal exam: Present: soft, normal bowel sounds - Extremities Exam Extremities exam: Present: normal inspection (no open wounds), tenderness (present in left hip region), other (patient leg is externally rotated and shortened). Absent: full ROM - Back Exam Back exam: Present: normal inspection - Neurological Exam Neurological exam: Present: alert, oriented X3 - Psychiatric Psychiatric exam: Present: normal affect, normal mood - Skin Skin exam: Present: warm, dry, intact, normal color. Absent: rash ED Course Vital Signs 11/09/18 11/09/18 11/09/18 19:46 20:47 20:48 Temperature 98 F Pulse Rate 73 69 Respiratory 19 16 Rate Blood Pressure 175/73 175/73 Blood Pressure 175/73 [Left] O2 Sat by Pulse 98 Oximetry ED Medical Decision Making - Lab Data Result diagrams: 11/09/18 20:29 11/09/18 20:29 - Medical Decision Making Patient received 4 mg of Morphine and 4mg of Zofran therapy while in the ER. Patient received a second dose of 4 mg of morphine while in emergency department as well. Patient case was discussed with [facility] and patient was accepted on the trauma service by Dr. Nicole. Patient to be transferred for further management to their facility. There is no orthopedic coverage at this hospital. Patient also treated for hyperkalemia while in the ER. Patient given calcium, albuterol, Kayexalate and insulin therapy while in emergency department. - Differential Diagnosis Fracture; Contusion; Dislocation Critical Care Time: Yes Critical care time in (mins) excluding proc time.: 35 Critical care attestation.: If time is entered above; I have spent that time in minutes in the direct care of this critically ill patient, excluding procedure time. Critical care time includes time spent on direct bedside care, physician consultation, and reassessments. ED Disposition Clinical Impression: Femur fracture, left, Hyperkalemia, End stage renal disease on dialysis, Essential hypertension Disposition: DC/TX-70 ANOTHER TYPE HLTHCARE Is pt being admited?: No Condition: Fair Instructions: Hypertension (ED) Time of Disposition: 21:26
[2018-11-09] MEDS ORDERED: CATAPRES PO ONE (20:19)
[2018-11-09] MEDS ORDERED: ZOFRAN IV ONE (20:20)
[2018-11-09] MEDS ORDERED: MORPHINE IV ONE ×2 (20:20→21:19)
[2018-11-09 20:44] LABS: Hematocrit 32.9 % (30.3-42.9); Hemoglobin 10.8 gm/dl (10.1-14.3); Mean Corpuscular HGB Conc 33 % (30-34); Mean Corpuscular Volume 99 fl (79-97); Platelet Count 181 K/mm3 (140-440); Red Blood Count 3.31 M/mm3 (3.65-5.03); Red Cell Distribution Width 15.6 % (13.2-15.2)
[2018-11-09 20:52] LABS: INR 1.12 (0.87-1.13)
[2018-11-09 20:53] LABS: Partial Thromboplastin Time 24.5 Sec. (24.2-36.6)
[2018-11-09 20:58] LABS: Albumin 3.6 g/dL (3.9-5); Calcium 8.9 mg/dL (8.4-10.2)
--- NOTE | 2018-11-09 21:01 | XRay Report ---
LEFT KNEE, 2 VIEWS INDICATION / CLINICAL INFORMATION: knee pain. Patient fell COMPARISON: None available. FINDINGS: There is a displaced oblique fracture involving the distal femoral diaphysis. Distal fracture fragmen t is angulated slightly laterally. Limited visualization of the femoral condyles but no obvious addit ional fractures identified. Small suprapatellar joint effusion noted. Limited visualization of the proximal tibia/fibula, but no obvious fractures of the lower leg noted. The bones are mildly demineralized. IMPRESSION: Displaced oblique fracture involving the distal femoral diaphysis. Signer Name: Lila Naqvi MD Signed: 11/09/2018 8:56 PM Workstation Name: [id number]
--- NOTE | 2018-11-09 21:02 | XRay Report ---
LEFT HIP, 3 VIEWS INDICATION / CLINICAL INFORMATION: hip pain. Patient fell COMPARISON: None available. FINDINGS: The bones are demineralized. No obvious fracture of the left hip or visualized pelvis. Mild degenerat nenita changes are present within the left hip. Right hip arthroplasty is incidentally noted. IMPRESSION: No acute fracture or dislocation identified. Signer Name: Lila Naqvi MD Signed: 11/09/2018 8:57 PM Workstation Name: [id number]
[2018-11-09] MEDS ORDERED: KIONEX PO ONE (21:16)
[2018-11-09] MEDS ORDERED: CALCIUM GLUCONATE 1,000 MG in NACL 0.9% 100 ML IV ONE (21:17)
[2018-11-09] MEDS ORDERED: HumuLIN R IV ONE (21:17)
[2018-11-09] MEDS ORDERED: PROVENTIL IH ONE (21:19)
[2018-11-09 23:07] VITALS: BP 187/61
== END 2018-11-09 23:37 | disposition other institution (70) ==
LOC: ED 19:13
DX: S72.492A Other fracture of lower end of left femur, initial encounter for closed fracture (principal); E87.5 Hyperkalemia; I13.2 Hypertensive heart and chronic kidney disease with heart failure and with stage 5 chronic kidney disease, or end stage renal disease; E11.22 Type 2 diabetes mellitus with diabetic chronic kidney disease; N18.6 End stage renal disease; I50.9 Heart failure, unspecified; Z99.2 Dependence on renal dialysis; Z79.4 Long term (current) use of insulin; Z98.890 Other specified postprocedural states; Z90.710 Acquired absence of both cervix and uterus; Z79.899 Other long term (current) drug therapy; Z79.82 Long term (current) use of aspirin; Z88.0 Allergy status to penicillin; W05.0XXA Fall from non-moving wheelchair, initial encounter; Y93.89 Activity, other specified; Y92.099 Unspecified place in other non-institutional residence as the place of occurrence of the external cause; Y99.8 Other external cause status
CPT/HCPCS: 36415; 73502; 73560; 80053; 82962; 85027; 85610; 85730; 94640; 96365; 96375; 96376; 99291; J0610; J2270; J2405; 94644; J1815

== ENCOUNTER 2018-11-22 10:24 | Emergency (ER) | payer MEDICARE ==
[2018-11-22] MEDS ORDERED: TORADOL IV ONE (11:23)
[2018-11-22 11:39] LABS: Basophils # (Auto) 0.1 K/mm3 (0.0-0.1); Basophils % (Auto) 0.5 % (0.0-1.8); Eosinophils # (Auto) 0.4 K/mm3 (0.0-0.4); Eosinophils % (Auto) 3.2 % (0.0-4.3); Hematocrit 23.8 % (30.3-42.9); Hemoglobin 7.8 gm/dl (10.1-14.3); Lymphocytes # (Auto) 1.1 K/mm3 (1.2-5.4); Lymphocytes % (Auto) 8.5 % (13.4-35.0); Mean Corpuscular HGB Conc 33 % (30-34); Mean Corpuscular Volume 97 fl (79-97); Monocytes # (Auto) 1.2 K/mm3 (0.0-0.8); Monocytes % (Auto) 9.6 % (0.0-7.3); Platelet Count 351 K/mm3 (140-440); Red Blood Count 2.45 M/mm3 (3.65-5.03); Red Cell Distribution Width 15.2 % (13.2-15.2)
[2018-11-22 12:01] LABS: Calcium 8.9 mg/dL (8.4-10.2)
--- NOTE | 2018-11-22 12:34 | Emergency Department Report ---
ED General Adult HPI - General Chief complaint: Altered Mental Status Stated complaint: LETHARGIC Time Seen by Provider: 11/22/18 11:04 Source: patient, EMS Mode of arrival: Stretcher Limitations: Physical Limitation - History of Present Illness Initial comments: Patient is a 83-year-old female with past history of hypertension end- stage renal disease on dialysis and congestive heart failure who is presenting with a chief complaint of near-syncope. Patient was at dialysis today and towards the end of the dialysis session was noted that she was lethargic. Patient was noted to be near-syncope. Patient states that after she had this episode she took some peppermint because she assumed her blood sugar was low. Patient states she started feeling better after the peppermint. Patient did have 2 episodes of nausea and vomiting which now subsided. Family also states that the new prescription for Percocet which she took late last night for pain may also been a factor. Vision was released from the hospital after having left scopic left knee surgery. Patient took Percocet and with sleep. Patient currently states she feels better than she did at dialysis center. She is denying any cough, congestion fevers chills current nausea vomiting or diarrhea. Severity scale (0 -10): 6 - Related Data Home Medications Medication Instructions Recorded Confirmed Last Taken Anastrozole (Nf) [Arimidex (Nf)] 1 mg PO DAILY 02/03/16 11/03/18 02/03/16 Calcitriol [Rocaltrol] 1 mcg PO QDAY 02/03/16 11/03/18 02/03/16 Carvedilol [Coreg] 25 mg PO BID 02/03/16 11/03/18 02/03/16 Ergocalciferol(Vitamin D2)(Nf) 400 unit PO DAILY 02/03/16 11/03/18 02/03/16 [Vitamin D (Nf)] Ferrous Sulfate [Feosol 325 MG tab] 325 mg PO BID 02/03/16 11/03/18 02/03/16 Metoprolol Xl [Metoprolol 50 mg PO QDAY 02/03/16 11/03/18 02/03/16 SUCCINATE ER TAB] Vit B Comp C/Folic Acid/Vit D3 1 each PO QDAY 02/03/16 11/03/18 02/03/16 [Dialyvite 800 Plus D Wafer] amLODIPine [Norvasc] 5 mg PO DAILY 02/03/16 11/03/18 02/03/16 glipiZIDE [glipiZIDE ER] 5 mg PO QAM 02/03/16 11/03/18 02/03/16 hydrALAZINE [Apresoline TAB] 25 mg PO BID 02/03/16 11/03/18 02/03/16 Aspirin [Aspirin BABY CHEW TAB] 81 mg PO QDAY 10/06/16 11/03/18 Unknown Carvedilol [Coreg] 25 mg PO BID 10/06/16 11/03/18 Unknown Furosemide [Lasix TAB] 80 mg PO 4XW 10/06/16 11/03/18 Unknown Insulin Lispro Prot/Lispro 25 unit SQ BID 10/06/16 11/03/18 Unknown [HumaLOG Mix 75/25 Vial] Losartan [Cozaar] 100 mg PO QDAY 10/06/16 11/03/18 Unknown Mv,Calcium,Min/Iron/Folic/Vitk 1 each PO DAILY 10/06/16 11/03/18 Unknown [Multi For Her Tablet] amLODIPine [Norvasc] 10 mg PO DAILY 10/06/16 11/03/18 Unknown Previous Rx's Medication Instructions Recorded Last Taken Type Colchicine [Colcrys] 0.6 mg PO QDAY #10 tablet 02/10/16 Unknown Rx Furosemide [Lasix TAB] 80 mg PO 4XW #20 tablet 02/10/16 Unknown Rx Insulin NPH/Regular [NovoLIN 70/30] 10 unit SUB-Q BIDDIAB units 02/10/16 Unknown Rx HYDROcodone/APAP 5-325 [[place] 1 - 2 each PO Q6HR PRN #10 tablet 09/12/18 Unknown Rx 5/325] Ibuprofen [Motrin 800 MG tab] 800 mg PO Q8HR PRN #20 tablet 09/12/18 Unknown Rx Allergies Allergy/AdvReac Type Severity Reaction Status Date / Time Penicillins Allergy Swelling Verified 10/06/16 06:14 ED Review of Systems ROS: Stated complaint: LETHARGIC Other details as noted in HPI Comment: All other systems reviewed and negative ED Past Medical Hx - Past Medical History Hx Hypertension: Yes Hx Congestive Heart Failure: Yes Hx Diabetes: Yes Hx Renal Disease: Yes - Surgical History Hx Breast Surgery: Yes Additional Surgical History: Right breast surgery, Left arm port, hysterectomy - Social History Smoking Status: Never Smoker Substance Use Type: None - Medications Home Medications: Home Medications Medication Instructions Recorded Confirmed Last Taken Type Anastrozole (Nf) [Arimidex (Nf)] 1 mg PO DAILY 02/03/16 11/03/18 02/03/16 History Calcitriol [Rocaltrol] 1 mcg PO QDAY 02/03/16 11/03/18 02/03/16 History Carvedilol [Coreg] 25 mg PO BID 02/03/16 11/03/18 02/03/16 History Ergocalciferol(Vitamin D2)(Nf) 400 unit PO DAILY 02/03/16 11/03/18 02/03/16 History [Vitamin D (Nf)] Ferrous Sulfate [Feosol 325 MG tab] 325 mg PO BID 02/03/16 11/03/18 02/03/16 History Metoprolol Xl [Metoprolol 50 mg PO QDAY 02/03/16 11/03/18 02/03/16 History SUCCINATE ER TAB] Vit B Comp C/Folic Acid/Vit D3 1 each PO QDAY 02/03/16 11/03/18 02/03/16 History [Dialyvite 800 Plus D Wafer] amLODIPine [Norvasc] 5 mg PO DAILY 02/03/16 11/03/18 02/03/16 History glipiZIDE [glipiZIDE ER] 5 mg PO QAM 02/03/16 11/03/18 02/03/16 History hydrALAZINE [Apresoline TAB] 25 mg PO BID 02/03/16 11/03/18 02/03/16 History Colchicine [Colcrys] 0.6 mg PO QDAY #10 tablet 02/10/16 11/03/18 Unknown Rx Furosemide [Lasix TAB] 80 mg PO 4XW #20 tablet 02/10/16 11/03/18 Unknown Rx Insulin NPH/Regular [NovoLIN 70/30] 10 unit SUB-Q BIDDIAB units 02/10/16 11/03/18 Unknown Rx Aspirin [Aspirin BABY CHEW TAB] 81 mg PO QDAY 10/06/16 11/03/18 Unknown History Carvedilol [Coreg] 25 mg PO BID 10/06/16 11/03/18 Unknown History Furosemide [Lasix TAB] 80 mg PO 4XW 10/06/16 11/03/18 Unknown History Insulin Lispro Prot/Lispro 25 unit SQ BID 10/06/16 11/03/18 Unknown History [HumaLOG Mix 75/25 Vial] Losartan [Cozaar] 100 mg PO QDAY 10/06/16 11/03/18 Unknown History Mv,Calcium,Min/Iron/Folic/Vitk 1 each PO DAILY 10/06/16 11/03/18 Unknown History [Multi For Her Tablet] amLODIPine [Norvasc] 10 mg PO DAILY 10/06/16 11/03/18 Unknown History HYDROcodone/APAP 5-325 [[place] 1 - 2 each PO Q6HR PRN #10 tablet 09/12/18 Unknown Rx 5/325] Ibuprofen [Motrin 800 MG tab] 800 mg PO Q8HR PRN #20 tablet 09/12/18 11/03/18 Unknown Rx ED Physical Exam - General Limitations: Physical Limitation General appearance: alert, in no apparent distress - Head Head exam: Present: atraumatic, normocephalic - Eye Eye exam: Present: normal appearance, PERRL, EOMI - ENT ENT exam: Present: mucous membranes moist - Neck Neck exam: Present: normal inspection - Respiratory Respiratory exam: Present: normal lung sounds bilaterally. Absent: respiratory distress, wheezes, rales, rhonchi - Cardiovascular Cardiovascular Exam: Present: regular rate, normal rhythm, normal heart sounds. Absent: systolic murmur, diastolic murmur, rubs, gallop - GI/Abdominal GI/Abdominal exam: Present: soft, normal bowel sounds. Absent: distended, tenderness, guarding, rebound - Extremities Exam Extremities exam: Present: normal inspection, other (patient with clean dry dressings to several small wounds to the left knee consistent with dressings from [place] scopic surgery. Patient also has some right shoulder tenderness and decreased range of motion to the right upper extremity secondary to pain. Patient states she fell a week ago. Patient has no fractures according to the patient and family.) - Back Exam Back exam: Present: normal inspection - Neurological Exam Neurological exam: Present: alert, oriented X3 - Psychiatric Psychiatric exam: Present: normal affect, normal mood - Skin Skin exam: Present: warm, dry, intact, normal color. Absent: rash ED Course Vital Signs 11/22/18 11/22/18 10:49 10:58 Temperature 98.2 F Pulse Rate 78 73 Respiratory 18 Rate Blood Pressure 150/60 142/52 [Right] O2 Sat by Pulse 100 Oximetry ED Medical Decision Making - Lab Data Result diagrams: 11/22/18 11:26 11/22/18 11:26 - EKG Data -: EKG Interpreted by Me - EKG Data 11/22/18 12:33 EKG shows sinus rhythm rate of 71. Nitro normal intervals are normal. There is evidence of LVH. No ST segment elevations or depressions. Time of interpretation is 1108 - Medical Decision Making Patient is a 83-year-old black female who has hypertension and end-stage renal disease who is presenting with a near syncopal episode. Is unknown whether the patient had a hypoglycemic episode however she did feel better after sucking A minute. Patient also could have had some reaction to Percocet which is a new medication for her. The patient is back to baseline according to the patient and her family and she is in good spirits and would like to go home. Instructed the patient to take half of Percocet spell of a hole. Patient discharged home. Critical care attestation.: If time is entered above; I have spent that time in minutes in the direct care of this critically ill patient, excluding procedure time. ED Disposition Clinical Impression: Near syncope, Adverse drug effect Disposition: DC-01 TO HOME OR SELFCARE Is pt being admited?: No Does the pt Need Aspirin: No Condition: Stable Instructions: Near Syncope (ED) Referrals: JONAS HARDEN MD [Primary Care Provider] - 3-5 Days Time of Disposition: 12:35
[2018-11-22 14:50] VITALS: BP 172/124
== END 2018-11-22 14:51 | disposition home or self-care (01) ==
LOC: ED 10:24
DX: R55 Syncope and collapse (principal); T39.1X5A Adverse effect of 4-Aminophenol derivatives, initial encounter; Y92.89 Other specified places as the place of occurrence of the external cause
CPT/HCPCS: 36415; 80048; 82962; 85025; 93005; 93010; 96374; 99284; J1885